=== PATIENT | male | born 1950 | race Caucasian/White ===

== ENCOUNTER 2018-03-02 06:00 | Day surgery (SDC) | payer OTHER ==
[~2018-03-02 06:00] MED LIST: ALLOPURINOL PO; KETOCONAZOLE200 MG PO; LOSARTAN-HCTZ1 EAC2 PO; NABUMETONE750 MG PO; [UNRECOGNIZED DRUG - OTHER] PO
== END 2018-03-02 09:50 | disposition home or self-care (01) ==
LOC: AMB-ENDOS 06:00
DX: D12.8 Benign neoplasm of rectum (principal)